=== PATIENT | male | born 1995 | race Caucasian/White ===

== ENCOUNTER 2019-09-02 10:21 | Emergency (ER) | payer BC ==
[2019-09-02] MEDS ORDERED: Fluorescein 1 MG Ophth Strip EYELF ONE (12:14)
--- NOTE | 2019-09-02 12:14 | EDM.PDOC ---
ED HPI GENERAL MEDICAL PROBLEM - General Chief Complaint: Eye Problems Stated Complaint: SOMETHING IN LEFT EYE Time Seen by Provider: 09/02/19 12:07 - History of Present Illness INITIAL COMMENTS - FREE TEXT/NARRATIVE: 24-year-old male presents the emergency room with a severe eye irritation on the left side. The patient noticed this early yesterday evening he was sitting in the truck and must add some blow into his eye. Or fall into his eye. He has had significant irritation in this area ever since then. He is photophobic and his eye is watering. The patient has not experienced this in the past. 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: Other (see below) Other Treatments NEWSSTAND VENDOR: Visine eye drops Left Eye Pain Score (Numeric/FACES): 7 - Related Data Allergies Allergy/AdvReac Type Severity Reaction Status Date / Time No Known Allergies Allergy Verified 09/02/19 10:43 Home Meds: Home Meds Acetaminophen/HYDROcodone [[place] 325-5 MG] 1 - 2 tab PO Q4H PRN #15 tablet 09/02 [Rx] lisinopriL [Lisinopril] 20 mg PO DAILY 09/02/19 [History] Past Medical History Cardiovascular History: Reports: Hypertension Social & Family History - Family History Family Medical History: Noncontributory - Tobacco Use Smoking Status *Q: Current Every Day Smoker Years of Tobacco use: 10 Packs/Tins Daily: 1 - Caffeine Use Caffeine Use: Reports: Coffee, Energy Drinks - Recreational Drug Use Recreational Drug Use: No ED ROS GENERAL - Review of Systems Review Of Systems: See Below Constitutional: Reports: No Symptoms Respiratory: Reports: No Symptoms Cardiovascular: Reports: No Symptoms GI/Abdominal: Reports: No Symptoms ED EXAM GENERAL W FULL EYE - Physical Exam Exam: See Below Eye Exam: Left Eye: Conjunctival Injection, Corneal Abrasion, Normal Fundi, PERRL, Bilateral Eye: EOMI Visual Acuity (R) 20/: 0 (Unable to obtain) Visual Acuity (L) 20/: 0 (Unable to obtain the patient has a hard time keeping his eyes open even after proparacaine) Eyelids: Left: Lid Everted for Exam (No foreign body identified) Conjunctiva & Sclera: Left: Injected Cornea Exam: Left: Corneal Abrasion (2 abrasions one linear 1 at the 10 o'clock position 1 small 1 at the 8 o'clock position), Examined with Flourescein Extraocular Movements: Bilateral: Intact Pupils: Normal Accommodation Anterior Chamber: Left: Normal Appearance Posterior Chamber: Left: Normal Funduscopic (Unable to obtain) Respiratory/Chest: No Respiratory Distress, Lungs Clear, Normal Breath Sounds Cardiovascular: Regular Rate, Rhythm, No Edema, No Murmur Course - Vital Signs Last Recorded V/S: Last Vital Signs Temp 37.1 C 09/02/19 10:39 Pulse 119 H 09/02/19 10:39 Resp 16 09/02/19 10:39 BP 173/97 H 09/02/19 10:39 Pulse Ox 97 09/02/19 10:39 - Orders/Labs/Meds Orders: Active Orders 24 hr Category Date Time Status Proparacaine [Proparacaine 0.5% Ophth Soln] Med 09/02/19 12:15 Active 1 ml EYELF ASDIRECTED Medication Orders Proparacaine HCl (Proparacaine 0.5% Ophth Soln) 1 ml EYELF ASDIRECTED KIKO Meds: Medications Generic Name Dose Route Start Last Admin Trade Name Freq PRN Reason Stop Dose Admin Proparacaine HCl 1 ml 09/02/19 12:15 Proparacaine 0.5% Ophth Soln EYELF ASDIRECTED KIKO Discontinued Medications Generic Name Dose Route Start Last Admin Trade Name Freq PRN Reason Stop Dose Admin Fluorescein Sodium 1 mg 09/02/19 12:14 Ful-Beata EYELF 09/02/19 12:15 ONETIME ONE - Re-Assessments/Exams Free Text/Narrative Re-Assessment/Exam: 09/02/19 12:55 Discussed tetanus status patient declines a tetanus shot Departure - Departure Time of Disposition: 12:57 Disposition: Home, Self-Care 01 Clinical Impression: Corneal abrasion, left - Discharge Information Prescriptions: Acetaminophen/HYDROcodone [[place] 325-5 MG] 1 - 2 tab PO Q4H PRN #15 tablet PRN Reason: Pain Referrals: Thi Barron NP [Primary Care Provider] - Forms: ED Department Discharge Additional Instructions: Return to the emergency room with any questions problems or worsening symptoms. Use the pain medication as needed allow 12 hours after using this medication before driving or returning to work. Use the erythromycin ointment about a half an inch inside the lower eyelid every few hours while awake. Follow-up with your eye doctor tomorrow. Sepsis Event Note - Evaluation Sepsis Screening Result: No Definite Risk - Focused Exam Vital Signs: Vital Signs Temp Pulse Resp BP Pulse Ox 09/02/19 10:39 37.1 C 119 H 16 173/97 H 97 Date Exam was Performed: 09/02/19 Time Exam was Performed: 12:50 - My Orders Last 24 Hours: My Active Orders 09/02/19 12:15 Proparacaine [Proparacaine 0.5% Ophth Soln] 1 ml EYELF ASDIRECTED - Assessment/Plan Last 24 Hours: My Active Orders 09/02/19 12:15 Proparacaine [Proparacaine 0.5% Ophth Soln] 1 ml EYELF ASDIRECTED
[2019-09-02] MEDS ORDERED: Proparacaine 0.5% Ophth Soln 15 ML Bottle EYELF SCH (12:15)
[2019-09-02] MEDS ORDERED: Erythromycin Base 0.5% Ophth Oint 1 GM Tube EYELF ONE (12:56)
== END 2019-09-02 13:18 | disposition home or self-care (01) ==
LOC: JD.ED 10:21
DX: S05.02XA Injury of conjunctiva and corneal abrasion without foreign body, left eye, initial encounter (principal); I10 Essential (primary) hypertension; F17.210 Nicotine dependence, cigarettes, uncomplicated; Z79.899 Other long term (current) drug therapy; X58.XXXA Exposure to other specified factors, initial encounter; Y92.812 Truck as the place of occurrence of the external cause
CPT/HCPCS: 99283; A9270

== ENCOUNTER 2020-10-01 18:49 | Emergency (ER) | payer SELFPAY ==
[2020-10-01] MEDS ORDERED: Diphtheria,Pertussis(Acell),Tetanus Vaccine 0.5 ML Syringe IM ONE (19:19)
--- NOTE | 2020-10-01 19:19 | EDM.PDOC ---
ED HPI GENERAL MEDICAL PROBLEM - General Chief Complaint: Eye Problems Stated Complaint: EYE INJURY Time Seen by Provider: 10/01/20 19:12 - History of Present Illness INITIAL COMMENTS - FREE TEXT/NARRATIVE: 25-year-old male presents the emergency room with foreign body sensation in his right eye. Patient is not entirely certain what could have gotten in there however he works with a lot of fiberglass and cardboard. Patient denies any significant vision changes. At times his eyes a little watery. Over time the discomfort is not improving.. Patient denies any other complaints with this most unfortunate event. He is uncertain of his last tetanus. Right Eye Pain Score (Numeric/FACES): 7 - Related Data Allergies Allergy/AdvReac Type Severity Reaction Status Date / Time No Known Allergies Allergy Verified 10/01/20 19:05 Home Meds: Home Meds Acetaminophen/HYDROcodone [[place] 325-5 MG] 1 - 2 tab PO Q6H PRN #15 tablet 10/01/20 [Rx] Acetaminophen/HYDROcodone [[place] 325-5 MG] 1 - 2 tab PO Q6H PRN #15 tablet 10/01/20 [Rx] Past Medical History Cardiovascular History: Reports: Hypertension Endocrine/Metabolic History: Reports: Hyperthyroidism Social & Family History - Family History Family Medical History: No Pertinent Family History - Tobacco Use Tobacco Use Status *Q: Current Every Day Tobacco User Years of Tobacco use: 7 Packs/Tins Daily: 2 - Caffeine Use Caffeine Use: Reports: Energy Drinks - Recreational Drug Use Recreational Drug Use: No ED ROS GENERAL - Review of Systems Review Of Systems: See Below Constitutional: Reports: No Symptoms HEENT: Reports: No Symptoms Respiratory: Reports: No Symptoms Cardiovascular: Reports: No Symptoms ED EXAM GENERAL W FULL EYE - Physical Exam Exam: See Below Exam Limited By: No Limitations General Appearance: Alert, No Apparent Distress Eye Exam: Right Eye: Conjunctival Injection, Left Eye: Normal Inspection, Bilateral Eye: PERRL Eyelids: Bilateral: Normal Appearance Conjunctiva & Sclera: Right: Injected Cornea Exam: Right: Corneal Abrasion (Pinpoint area of uptake in the 10 o'clock position no foreign body is seen here but it could be healing ulceration), Examined with Flourescein Extraocular Movements: Bilateral: Intact Pupils: Normal Accommodation Anterior Chamber: Bilateral: Normal Appearance Posterior Chamber: Bilateral: Normal Funduscopic Ears: Normal External Exam, Normal Canal, Hearing Grossly Normal, Normal TMs Nose: Normal Inspection, Normal Mucosa, No Blood Throat/Mouth: Normal Inspection, Normal Lips, Normal Teeth, Normal Gums, Normal Oropharynx, Normal Voice, No Airway Compromise Head: Atraumatic, Normocephalic Neck: Normal Inspection, Supple, Non-Tender, Full Range of Motion Respiratory/Chest: No Respiratory Distress, Lungs Clear, Normal Breath Sounds Cardiovascular: Regular Rate, Rhythm, No Edema, No Murmur Course - Vital Signs Last Recorded V/S: Last Vital Signs Temp 36.4 C 10/01/20 19:02 Pulse 136 H 10/01/20 19:02 Resp 16 10/01/20 19:02 BP 196/117 H 10/01/20 19:02 Pulse Ox 98 10/01/20 19:02 - Orders/Labs/Meds Orders: Active Orders 24 hr Category Date Time Status Vaccines to be Administered [RC] PER UNIT ROUTINE Care 10/01/20 19:20 Active Proparacaine [Proparacaine 0.5% Ophth Soln] Med 10/01/20 19:30 Active 2 ml EYERT ASDIRECTED Medication Orders Proparacaine HCl (Proparacaine 0.5% Ophth Soln) 2 ml EYERT ASDIRECTED KIKO Last Admin: 10/01/20 19:46 Dose: 2 ml Documented by: SARA Meds: Medications Generic Name Dose Route Start Last Admin Trade Name Freq PRN Reason Stop Dose Admin Proparacaine HCl 2 ml 10/01/20 19:30 10/01/20 19:46 Proparacaine 0.5% Ophth Soln EYERT 2 ml ASDIRECTED KIKO Administration Discontinued Medications Generic Name Dose Route Start Last Admin Trade Name Freq PRN Reason Stop Dose Admin Diphtheria/Tetanus/Acell Pertussis 0.5 ml 10/01/20 19:19 10/01/20 19:45 Boostrix IM 10/01/20 19:20 0.5 ml .ONCE ONE Administration Fluorescein Sodium 1 mg 10/01/20 19:24 10/01/20 19:46 Ful-Beata EYERT 10/01/20 19:25 1 mg ONETIME ONE Administration - Re-Assessments/Exams Free Text/Narrative Re-Assessment/Exam: 10/01/20 19:59 He has an area in his right eye that possibly could represent healing corneal abrasion. Departure - Departure Time of Disposition: 20:00 Disposition: Home, Self-Care 01 Clinical Impression: Corneal abrasion - Discharge Information Referrals: PCP,None [Primary Care Provider] - Forms: ED Department Discharge Additional Instructions: Return to the emergency room with any questions problems or worsening symptoms. Follow-up with your eye doctor tomorrow. You have been given some pain pills to use this evening take 1 or 2 every 6 hours as needed for pain allow 12 hours after using this medication before driving or returning to work if he have to take him from more than a day consider taking a stool softener as these medications can cause constipation. Sepsis Event Note (ED) - Evaluation Sepsis Screening Result: No Definite Risk - Focused Exam Vital Signs: Vital Signs Temp Pulse Resp BP Pulse Ox 10/01/20 19:02 36.4 C 136 H 16 196/117 H 98 - My Orders Last 24 Hours: My Active Orders 10/01/20 19:20 Vaccines to be Administered [RC] PER UNIT ROUTINE 10/01/20 19:30 Proparacaine [Proparacaine 0.5% Ophth Soln] 2 ml EYERT ASDIRECTED - Assessment/Plan Last 24 Hours: My Active Orders 10/01/20 19:20 Vaccines to be Administered [RC] PER UNIT ROUTINE 10/01/20 19:30 Proparacaine [Proparacaine 0.5% Ophth Soln] 2 ml EYERT ASDIRECTED
[2020-10-01] MEDS ORDERED: Fluorescein 1 MG Ophth Strip EYERT ONE (19:24)
[2020-10-01] MEDS ORDERED: Proparacaine 0.5% Ophth Soln 15 ML Bottle EYERT SCH (19:30)
== END 2020-10-01 20:18 | disposition home or self-care (01) ==
LOC: JD.ED 18:49
DX: S05.01XA Injury of conjunctiva and corneal abrasion without foreign body, right eye, initial encounter (principal); I10 Essential (primary) hypertension; Z72.0 Tobacco use; Z23 Encounter for immunization; X58.XXXA Exposure to other specified factors, initial encounter
CPT/HCPCS: 90471; 90715; 99283